=== PATIENT | male | born 1955 | race Caucasian/White ===

== ENCOUNTER 2025-03-11 10:13 | Day surgery (SDC) | payer MEDICARE, OTHER, SELFPAY ==
[2025-03-04 13:22] VITALS: BMI 28.8
--- NOTE | 2025-03-11 10:48 | EXP.HP ---
History of Present Illness *Admission Date: 03/11/25 *History of present illness: Mr. Steinberg is a 69-year-old gentleman who is here for follow-up screening/surveillance colonoscopy secondary to a personal history of adenomatous polyps. The examination is deemed medically necessary for surveillance/screening colonoscopy. The patient has been seen, interviewed and examined prior to the procedure by both myself and the anesthesia provider. [facility] Disclaimer: The information contained in this section may have been updated after the patient was seen, as this information can be updated by other users. Medical History Ulrich syndrome Testicular carcinoma Hypertension Surgical History H/O removal of cyst Hx of appendectomy Hx of tonsillectomy Family History (Updated 03/11/25 @ 11:35 by Clari Pyle RN) Other Family history of cancer Family history of myocardial infarction Social History (Updated 03/11/25 @ 11:57 by Tom Luna CRNA) Smoking Status: Never smoker alcohol intake: former substance use type: denies use current occupational status: retired Travel in the last 8 weeks?: None caffeine: Yes Have you lived/traveled outside [place] in past 30 days?: No Contact w/someone who lives/traveled outside [place] past 30 days?: No Exposure to someone with infectious disease in past 14 days?: No Do you have a fever (greater than 100.4 F or 38 C)?: No Have you tested positive for COVID-19?: No Exposed to someone with COVID-19 in past 14 days?: No Do you have a sore throat?: No Do you have a cough?: No Do you have any weakness?: No Do you have any diarrhea?: No Are you experiencing any unusual bleeding?: No Do you have any muscle aches/pain?: No Do you have any abdominal pain?: No Are you experiencing loss of taste or smell?: No Review of Systems Review of Systems Review of systems (narrative): Negative *Cardiovascular Comments: Negative *Gastrointestinal Comments: Negative *Genitourinary Comments: Negative *Musculoskeletal Comments: Negative *Neurologic Comments: Negative Meds Home Medications and Allergies Home Medications ?Medication ?Instructions ?Recorded ?Confirmed ?Type sodium,potassium,mag sulfates 17.5 See Rx Instructions PO .COMPLEX 02/26/25 03/11/25 Rx gram-3.13 gram-1.6 gram oral soln #354 mL (Suprep Bowel Prep Kit) jqgprazakrbzyg-bwrhsfmvjid-wudprljzsdkx 1 tab PO DAILY 03/04/25 03/11/25 History calc. 600 mg-2 mg-6 mg tablet ([employer]) amlodipine 5 mg tablet 5 mg PO DAILY 03/04/25 03/11/25 History lisinopril 40 mg tablet 40 mg PO DAILY 03/04/25 03/11/25 History omeprazole 40 mg capsule,delayed 40 mg PO BID 03/04/25 03/11/25 History release rosuvastatin 10 mg tablet 10 mg PO DAILY 03/04/25 03/11/25 History vitamin B complex 1 cap PO DAILY 03/04/25 03/11/25 History New Prescriptions to Start Prescriptions: Allergies Allergy/AdvReac Type Severity Reaction Status Date / Time No Known Allergies Allergy Verified 03/11/25 11:43 Exam *Routine HEENT Exam Head: Present normocephalic Eye: Present EOMI and PERRL ENT: Present mucous membranes moist *Routine Neck Exam Neck: Present supple *Routine Respiratory Exam Respiratory: Present CTA bilaterally *Routine Cardiovascular Exam Cardiovascular: Present RRR *Routine Abdominal Exam Abdominal: Present soft and normoactive bowel sounds; Absent tenderness *Routine Rectal Exam Rectal:: deferred *Routine Genitalia Exam Genitalia:: deferred *Routine Extremities Exam Extremities: Absent cyanosis, clubbing or edema *Routine Skin Exam Skin: Present warm; Absent rash *Routine Neurological Exam Neurological: Present alert and oriented X3 Assessment and Plan *Assessment and plan (1) Personal history of adenomatous and serrated colon polyps: Status: Acute Category: Medical Code(s): Z86.0101 - Personal history of adenomatous and serrated colon polyps (2) Screening for colon cancer: Status: Acute Category: Medical Code(s): Z12.11 - Encounter for screening for malignant neoplasm of colon Plan A/P: 1. Personal history of adenomatous colon polyps is the preprocedural diagnosis. The patient's last colonoscopy was 5 years ago and he had 6 polyps (tubular adenomas) removed. The patient will be anesthetized/sedated using MAC sedation. The patient has been seen and examined. Cardiac and lung assessment prior to the examination is stable. Proceed with planned screening/surveillance colonoscopy.
[2025-03-11 11:33] VITALS: BP 184/90; PULSE 79; RESP 16; TEMP 36.2; O2SAT 100; BMI 28.8
[2025-03-11] MEDS: LACTATED RINGERS 1000ML 1,000 ML 50 ML IV (11:53)
--- NOTE | 2025-03-11 11:56 | EXP.ANES.CKL ---
[facility] Disclaimer: The information contained in this section may have been updated after the patient was seen, as this information can be updated by other users. Medical History Ulrich syndrome Testicular carcinoma Hypertension Surgical History H/O removal of cyst Hx of appendectomy Hx of tonsillectomy Family History (Updated 03/11/25 @ 11:35 by Clari Pyle RN) Other Family history of cancer Family history of myocardial infarction Social History Smoking Status: Never smoker alcohol intake: former substance use type: denies use current occupational status: retired Travel in the last 8 weeks?: None caffeine: Yes [facility] Anesthesia Checklist Patient Identification Patient Identification: Arm Band and Verbal (Name & ) Structural Data Admitted From: Home Planned Operative Procedure/s: Colonoscopy Verified Documents: Surgical Consent NPO Status Verified Time NPO: 00:00 Additional verifications Anesthesia Reactions: No Airway Assessment Mallampati Score:: Class II C-Spine Mobility Assessed: Yes TMJ Mobility Assessed: Yes Dentition: Good Dentition Neurological Assessment Level of Consciousness: Awake, Alert and Appropriate Hx Seizures: No Numbness or tingling in extremities: No Anesthesia Plan Anesthesia Risk discussed: Yes Anesthesia Plan: Verified ASA Class: II Anesthesia Type: MAC
--- NOTE | 2025-03-11 12:24 | P.PCN_ITS ---
[facility] Procedure Note Date: 03/11/25 Time: 12:41 Procedure Note:: Colonoscopy Procedure Report: Colonoscopy with cold snare polypectomy Endoscopist: Malcolm Beth II, MD Referring physician: Horacio Paul MD, [id number], [place] [address] Date of Procedure: March 11, 2025 Equipment: Olympus [id number] adult colonoscope Sedation: MAC sedation Indication: Mr. Steinberg is a 69-year-old gentleman who is here for follow-up screening/surveillance colonoscopy. His last colonoscopy was 5 years ago and he had 6 polyps removed (tubular adenomas). The patient reports no abdominal pain, weight loss, change in his bowel habits or rectal bleeding. He reports no family history of colon cancer. The patient does have a history of Ulrich's esophagus with dysplasia and has been successfully treated with more recent biopsies showing no dysplasia. He is on omeprazole twice daily. Procedure: Prior to the procedure, a history and physical exam was performed, and patient's medications and allergies were reviewed. The risks, benefits and alternatives of the sedation and procedure were discussed with the patient. All questions were answered and informed consent was obtained. The patient was brought to the procedure room. Patient identification and proposed procedure were verified by the physician and the nurse. The patient was placed in a left lateral decubitus position and the scope was passed under direct vision. Throughout the procedure, the patient's blood pressure, pulse, and oxygen saturations were monitored continuously. The colonoscopy was accomplished without difficulty. The patient tolerated the procedure well. Findings: On digital rectal examination there was normal rectal tone. There were no external hemorrhoids. The colonoscope was introduced through the anal canal to the rectum and advanced to the cecum. The ileocecal valve and appendiceal orifice were identified. The scope was advanced a short distance into the ileum which appeared grossly normal. The scope was then withdrawn into the colon. The cecum, ascending and transverse colon were grossly normal. There were 2 adjacent polyps in the descending colon (4 and 4 mm) and 1 hyperplastic appearing polyp in the sigmoid colon (3 mm) that were all removed via cold snare polypectomy. There were a few diverticula in the sigmoid colon. There were no other mucosal abnormalities identified. Upon retroflexion within the rectum there were grade 1-2 internal hemorrhoids. The preparation was excellent throughout with [place] Preparation Score of 9. The cecal time was 12 minutes. Impression: 1. Diminutive colonic polyps x 3 Plan: I will follow-up the polyp histology and recommend surveillance colonoscopy again in 5 years.
[2025-03-11 12:44] VITALS: BP 86/71; PULSE 71; RESP 17; TEMP 36.1; O2SAT 95
[2025-03-11 12:54] VITALS: BP 133/86; PULSE 77; RESP 18; O2SAT 96
[2025-03-11 13:04] VITALS: BP 135/89; PULSE 76; RESP 16; O2SAT 98
[2025-03-11 13:14] VITALS: BP 141/90; PULSE 75; RESP 16; O2SAT 100
== END 2025-03-11 13:20 | disposition home or self-care (01) ==
PROVIDERS: PCP Internal Medicine; Visit Provider Internal Medicine Gastroenterology
PROC: 0DJD8ZZ Inspection of Lower Intestinal Tract, Via Natural or Artificial Opening Endoscopic (ICD-10-PCS; CPT 45378; principal; 2025-03-11 12:00)
DX: Z12.11 Encounter for screening for malignant neoplasm of colon (principal); D12.3 Benign neoplasm of transverse colon; I10 Essential (primary) hypertension; Z86.0101 Personal history of adenomatous and serrated colon polyps; Z79.899 Other long term (current) drug therapy
CPT/HCPCS: 45385; J2003; J2704; J7120